=== PATIENT | male | born 1985 | race Caucasian/White ===

== ENCOUNTER 2017-02-28 12:33 | Emergency (ER) | payer OTHER ==
[~2017-02-28] VITALS: Ht 170.2 cm; Wt 89.0 kg
[2017-02-28 12:51] VITALS: Ht 170.2 cm; Wt 89.0 kg
[2017-02-28] MEDS ORDERED: ALPRAZOLAM 1 MG TAB PO ONE (15:30)
--- NOTE | 2017-02-28 17:02 | ERD ---
ER Documentation Chief Complaint Date/Time DATE: 02/28/17 TIME: 17:00 Chief Complaint needs anxiety medication refill, pmd apt not till next friday HPI Patient is a 31-year-old male with panic attacks who presents with a panic attack. He said he ran out of Xanax 40 hours ago. He was in [place] and he called his primary doctor in [place] who told him to go to the emergency department. He has a history of seizures with benzo withdrawal. He said that he usually takes 1 mg of Xanax twice a day. Upon review of old medical records this is the patient's first visit to our emergency department however review of the emergency department information exchange system shows 7 visits to [facility] in [place]. ROS All systems reviewed and are negative except as per history of present illness. Allergies Allergies: Coded Allergies: No Known Allergy (Unverified , 02/28/17) PMhx/Soc Medical and Surgical Hx: pt denies Surgical Hx Hx Miscellaneous Medical Probl: Yes (anxiety) Hx Alcohol Use: No Hx Substance Use: No Hx Tobacco Use: No Smoking Status: Never smoker FmHx Family History: No diabetes Physical Exam Vitals Vital Signs Date Time Temp Pulse Resp B/P Pulse Ox O2 Delivery O2 Flow Rate FiO2 02/28/17 12:51 98.3 95 20 142/96 100 Physical Exam Const: No acute distress Head: Atraumatic Eyes: Normal Conjunctiva ENT: Normal External Ears, Nose and Mouth. Neck: Full range of motion..~ No meningismus. Resp: Clear to auscultation bilaterally Cardio: Regular rate and rhythm, no murmurs Abd: Soft, non tender, non distended. Normal bowel sounds Skin: No petechiae or rashes Back: No midline or flank tenderness Ext: No cyanosis, or edema Neur: Awake and alert Psych: Anxious but no signs of withdrawal at this time Results 24 hrs Current Medications Medications (Trade) Dose Ordered Sig/Yaneth Route PRN Reason Start Time Stop Time Status Last Admin Dose Admin Alprazolam (Xanax) 1 mg ONCE ONCE PO 02/28/17 15:30 02/28/17 15:31 DC 02/28/17 15:19 Procedures/MDM Patient is a 31-year-old male presents with panic attack and benzodiazepine withdrawal. The patient was given 1 mg of Xanax in the emergency department. However I do believe there may be an element of seeking behavior and I will not give any prescriptions for benzodiazepine medication. The patient will need to follow-up with the substance abuse treatment centers locally and he was given a list of these centers. I told him that he will benefit from being on an SSRI for anxiety and panic attack as opposed to a benzodiazepine. Departure Diagnosis: Primary Impression: Anxiety Additional Impression: Encounter for medication refill Condition: Fair Patient Instructions: Your Body's Response to Anxiety Referrals: [facility] YOU HAVE RECEIVED A MEDICAL SCREENING EXAM AND THE RESULTS INDICATE THAT YOU DO NOT HAVE A CONDITION THAT REQUIRES URGENT TREATMENT IN THE EMERGENCY DEPARTMENT. FURTHER EVALUATION AND TREATMENT OF YOUR CONDITION CAN WAIT UNTIL YOU ARE SEEN IN YOUR DOCTORS OFFICE WITHIN THE NEXT 1-2 DAYS. IT IS YOUR RESPONSIBILITY TO MAKE AN APPOINTMENT FOR FOLOW-UP CARE. IF YOU HAVE A PRIMARY DOCTOR --you should call your primary doctor and schedule an appointment IF YOU DO NOT HAVE A PRIMARY DOCTOR YOU CAN CALL OUR PHYSICIAN REFERRAL HOTLINE AT IF YOU CAN NOT AFFORD TO SEE A PHYSICIAN YOU CAN CHOSE FROM THE FOLLOWING [facility] [address] [facility]. [facility] [address] [facility] [facility] [address] [facility] [facility] [address] [facility]. [facility] [address] [facility] [facility]. [address] Additional Instructions: Call your primary care doctor TOMORROW for an appointment during the next 1-2 days.See the doctor sooner or return here if your condition worsens before your appointment time. DEEPAK KHAN MD Feb 28, 2017 17:02
== END 2017-02-28 16:19 | disposition left against medical advice (07) ==
LOC: FTE 12:33
DX: F41.9 Anxiety disorder, unspecified (principal); Z76.0 Encounter for issue of repeat prescription
CPT/HCPCS: 99283